=== PATIENT | male | born 1995 | race African-American/Black ===

== ENCOUNTER 2019-08-14 03:01 | Emergency (ER) | payer SELFPAY ==
[~2019-08-14] VITALS: Ht 170.2 cm; Wt 71.8 kg
[2019-08-14 03:46] LABS: STREP SCREEN NEGATIVE
[2019-08-14 04:00] VITALS: BP 132/70; PULSE 67; TEMP 98.8
== END 2019-08-14 04:05 | disposition home or self-care (01) ==
LOC: COL.ER 03:01
PROVIDERS: Emergency Medicine
DX: S96.911A Strain of unspecified muscle and tendon at ankle and foot level, right foot, initial encounter (principal); J02.9 Acute pharyngitis, unspecified; X58.XXXA Exposure to other specified factors, initial encounter